=== PATIENT | male | born 1945 | race Caucasian/White ===

== ENCOUNTER 2020-01-16 11:06 | Outpatient (REF) | payer MEDICARE, SELFPAY ==
--- NOTE | 2020-01-16 | XR_ITS ---
EXAMINATION: XR ABDOMEN KUB CLINICAL INDICATION: Nephrolithiasis COMPARISON: Previous KUB June 2018 and renal ultrasound from the same day TECHNIQUE: AP view of the abdomen. FINDINGS: There are 2 left lower pole renal stones measuring 7 mm and 3 mm that appear unchanged. No right renal stone is seen. There are stable bilateral pelvic calcifications probably representing calcified phleboliths. Bowel gas pattern is normal. There are degenerative changes of the spine. XR/XR KUB IMPRESSION: Left renal stones.
--- NOTE | 2020-01-16 11:12 | US_ITS ---
EXAMINATION: US RETROPERITONEAL LIMITED (RENAL ONLY) CLINICAL INFORMATION: Nephrolithiasis. COMPARISON: Abdominal ultrasound dated 07/06/2019 TECHNIQUE: Real-time imaging of the kidneys. FINDINGS: RIGHT KIDNEY: 9.8 x 5.8 x 5.3 cm (SAG x AP x TRV). The kidney is normal in size, contour, and echogenicity. Renal cortical thickness is normal. No calculi or focal parenchymal lesions. No hydronephrosis. LEFT KIDNEY: 11.0 x 5.2 x 4.3 cm (SAG x AP x TRV). The kidney is normal in size, contour, and echogenicity. Renal cortical thickness is normal. No focal parenchymal lesions or hydronephrosis. There are 2 echogenic stones in the midpole. They measure 0.5 x 0.42 x 0.53 cm and 0.64 x 0.43 x 0.73 cm US/US renal BI IMPRESSION: Nonobstructive 2 echogenic stones in the midpole left kidney.
[2020-01-16 14:58] LABS: Alanine Aminotransferase 32 U/L (0-40); Aspartate Amino Transferase 31 U/L (5-37); Cholesterol 135 mg/dL; HDL Cholesterol 46 mg/dL; LDL Cholesterol Calculated 60 mg/dl; Triglycerides 145 mg/dL
== END 2020-01-16 11:07 | disposition home or self-care (01) ==
LOC: HO.HMGCX 11:06
PROVIDERS: PCP Internal Medicine; Referring Provider Internal Medicine Cardiovascular Disease; Visit Provider Urology
DX: E78.5 Hyperlipidemia, unspecified (principal); N20.0 Calculus of kidney
CPT/HCPCS: 74018; 76775; 80061; 84450; 84460

== ENCOUNTER 2020-02-02 11:00 | Outpatient (RCR) | payer MEDICARE, SELFPAY ==
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
--- NOTE | 2020-02-20 11:44 | MHC.PT.DC ---
[facility] [place] Office [place] Office [place] Office [address] Marcelo Adair [address] [phone] F: [phone] F: [phone] F: [phone] F: [phone] Physical Therapy Discharge Report Diagnosis: Back pain. Pt has no back pain, right ischial tuberosity tenderness and posterior upper leg pain. ? HS tear. Date of Surgery: n/a Date of Evaluation: 12/27/19 Date of Discharge: 02/20/20 Treatments to Date: 6 Cancellations to Date: 0 No Shows to Date: 0 Discharge Status: Achieved Goals Improved Function Independent with HEP Discharge Summary: BP 132/63 HR 68 SA02 97% (vitals from last treatment session) Pt attended 6 PT visits to address posterior leg pain w/ questionable HS tear. With his 's assistance, Pt is I w/ HEP. He is going back to [facility] per MD and therefore will be discharged from PT. Electronically signed by: Pam Justice PT, DPT Please sign and return to therapist. Thank you for your referral.
== END 2020-02-20 11:45 | disposition other institution (70) ==
LOC: HO.PT 11:00
PROVIDERS: PCP Internal Medicine; Visit Provider Internal Medicine
DX: M54.9 Dorsalgia, unspecified (principal)
CPT/HCPCS: 97110; 97112; 97140; 97162

== ENCOUNTER → 2020-02-24 15:11 | Outpatient (BNVA) | payer MEDICARE, SELFPAY | PROVIDERS: PCP Internal Medicine; Referring Provider Internal Medicine; Visit Provider Urology | DX: Z76.89 Persons encountering health services in other specified circumstances (principal) | CPT/HCPCS: Q3014 ==

== ENCOUNTER 2020-05-25 16:12 | Outpatient (REF) | payer MEDICARE, SELFPAY ==
[2020-05-25 17:57] LABS: Glucose Urine UA NEG (NEG); Leukocyte Esterase Urine NEG (NEG); Nitrite Urine NEG (NEG); PH 5.5 (5.0-8.0); Specific Gravity - Urine 1.025 (1.005-1.025); Urine Blood NEG (NEG); Urine Ketones NEG (NEG); Urine Protein 1+ MG/DL (NEG-TRACE)
[2020-05-25 17:58] LABS: Appearance Urine CLEAR; Color Urine YELLOW
[2020-05-25 18:06] LABS: RBC Urine 0 /HPF (0); WBC Urine 0 /HPF (0-4)
[2020-05-25 18:07] LABS: Squamous Epithelial Cell Urine TRACE /LPF
== END 2020-05-25 16:13 | disposition home or self-care (01) ==
LOC: HO.LAB 16:12
PROVIDERS: PCP Internal Medicine; Visit Provider Internal Medicine
DX: N39.0 Urinary tract infection, site not specified (principal)
CPT/HCPCS: 81001

== ENCOUNTER 2020-05-29 10:40 | Outpatient (REF) | payer MEDICARE, SELFPAY ==
--- NOTE | ~2020-05-29 | XR_ITS ---
EXAMINATION: XR ABDOMEN KUB CLINICAL INDICATION: Renal calculus. COMPARISON: 01/16/2020 KUB. TECHNIQUE: AP view of the abdomen. FINDINGS: 2 radiopaque calculi are seen overlying the left kidney measuring 0.7 cm and 0.5 cm without significant change. Phleboliths in the deep pelvis have not significantly changed. No radiopaque densities are seen overlying the right kidney. There is a nonobstructive bowel gas pattern. Gas and stool are seen distally to the rectum. Mild to moderate multilevel degenerative changes are again seen in the thoracolumbar spine. XR/XR KUB IMPRESSION: Left intrarenal calculi without significant change.
[2020-05-29 11:42] LABS: MANUAL DIFF FLAG NO
[2020-05-29 11:54] LABS: Basophils Percent Auto 0.6 % (0-2); Eosinophils Absolute Auto 0.2 X10*3/uL (0.0-0.4); Eosinophils Percent Auto 3.6 % (0-4); Hematocrit 39.6 % (42-52); Hemoglobin 13.2 g/dl (14.0-18.0); Imm Gran Abs Auto 0.02 X10*3/uL (0.00-0.03); Imm Gran Pct Auto 0.3 % (0.0-0.4); Lymphocytes Absolute Auto 1.8 X10*3/uL (1.2-4.9); Lymphocytes Percent Auto 29.7 % (20-40); Mean Corpuscular HGB Conc 33.3 g/dl (31.0-36.0); Mean Corpuscular Hemoglobin 34.4 pg (27.0-33.0); Mean Corpuscular Volume 103.1 fL (80-98); Mean Platelet Volume 10.9 fL (9.4-12.4); Monocytes Absolute Auto 0.7 X10*3/uL (0.1-1.2); Monocytes Percent Auto 11.2 % (2-11); Neutrophils Absolute Auto 3.4 X10*3/uL (2.0-8.3); Neutrophils Percent Auto 54.6 % (45-73); Platelet Count 246 X10*3/uL (160-400); Red Blood Count 3.84 X10*6/uL (4.60-5.80); Red Cell Distribution Width 13.2 % (11.0-16.0); White Blood Count 6.2 X10*3/uL (4.8-10.8)
[2020-05-29 12:04] LABS: Glucose Urine UA NEG (NEG); Leukocyte Esterase Urine NEG (NEG); Nitrite Urine NEG (NEG); Specific Gravity - Urine 1.025 (1.005-1.025); Urine Blood NEG (NEG); Urine Ketones NEG (NEG); Urine Protein 1+ MG/DL (NEG-TRACE)
[2020-05-29 12:08] LABS: Appearance Urine CLEAR; Color Urine YELLOW
[2020-05-29 12:37] LABS: Alanine Aminotransferase 22 U/L (0-40); Albumin Level 4.5 g/dL (3.5-5.0); Alkaline Phosphatase 80 U/L (39-117); Aspartate Amino Transferase 23 U/L (5-37); Blood Urea Nitrogen 19 mg/dL (9-16); Calcium 9.4 mg/dL (8.4-10.2); Cholesterol 156 mg/dL; Estimated Glomerular Filt Rate > 60; Glucose Fasting 106 mg/dL (60-99); HDL Cholesterol 50 mg/dL; LDL Cholesterol Calculated 79 mg/dl; Triglycerides 138 mg/dL
[2020-05-29 12:41] LABS: Thyroid Stimulating Hormone 0.87 uIU/mL (0.32-4.0)
[2020-05-29 12:49] LABS: RBC Urine 0 /HPF (0); WBC Urine 0 /HPF (0-4)
[2020-05-29 13:19] LABS: Anion Gap 14 (12-20); Carbon Dioxide 25 mmol/L (22-29); Chloride 108 mmol/L (96-108); Potassium 4.7 mmol/L (3.3-5.1); Sodium 142 mmol/L (135-145)
== END 2020-05-29 10:41 | disposition home or self-care (01) ==
LOC: HO.LAB 10:40
PROVIDERS: Absent Provider Urology; PCP Internal Medicine; Visit Provider Internal Medicine
DX: Z00.00 Encounter for general adult medical examination without abnormal findings (principal); N20.0 Calculus of kidney; E11.9 Type 2 diabetes mellitus without complications; E03.9 Hypothyroidism, unspecified; N39.0 Urinary tract infection, site not specified
CPT/HCPCS: 36415; 74018; 80053; 80061; 81001; 81003; 84443; 85025

== ENCOUNTER → 2021-03-06 12:48 | Outpatient (BNVA) | payer MEDICARE, SELFPAY | PROVIDERS: PCP Internal Medicine; Visit Provider Urology | DX: Z13.89 Encounter for screening for other disorder (principal) | CPT/HCPCS: Q3014 ==

== ENCOUNTER → 2021-04-23 11:56 | Outpatient (BNVA) | payer MEDICARE, SELFPAY | PROVIDERS: PCP Internal Medicine; Visit Provider Urology | DX: Z13.89 Encounter for screening for other disorder (principal) | CPT/HCPCS: Q3014 ==

== ENCOUNTER → 2021-06-21 11:11 | Outpatient (BNVA) | payer MEDICARE, SELFPAY | PROVIDERS: PCP Internal Medicine; Visit Provider Urology | DX: N20.0 Calculus of kidney (principal); R39.12 Poor urinary stream | CPT/HCPCS: Q3014 ==

== ENCOUNTER 2021-08-31 09:50 | Outpatient (REF) | payer MEDICARE, SELFPAY ==
[2021-08-31 10:06] LABS: MANUAL DIFF FLAG NO
[2021-08-31 11:05] LABS: Basophils Percent Auto 0.8 % (0-2); Eosinophils Absolute Auto 0.2 X10*3/uL (0.0-0.4); Hematocrit 37.1 % (42.0-52.0); Hemoglobin 12.3 g/dl (14.0-18.0); Imm Gran Abs Auto 0.01 X10*3/uL (0.00-0.03); Imm Gran Pct Auto 0.2 % (0.0-0.4); Lymphocytes Absolute Auto 1.4 X10*3/uL (1.2-4.9); Lymphocytes Percent Auto 25.7 % (20-40); Mean Corpuscular HGB Conc 33.2 g/dl (31.0-36.0); Mean Corpuscular Hemoglobin 33.8 pg (27.0-33.0); Mean Corpuscular Volume 101.9 fL (80.0-98.0); Mean Platelet Volume 11.3 fL (9.4-12.4); Monocytes Absolute Auto 0.6 X10*3/uL (0.1-1.2); Neutrophils Absolute Auto 3.1 x10*3/uL (2.0-8.3); Neutrophils Percent Auto 58.3 % (45-73); Platelet Count 195 X10*3/uL (160-400); Red Blood Count 3.64 X10*6/uL (4.60-5.80); Red Cell Distribution Width 13.8 % (11.0-16.0); White Blood Count 5.3 X10*3/uL (4.8-10.8)
[2021-08-31 11:32] LABS: Alanine Aminotransferase 25 U/L (0-40); Albumin Level 4.4 g/dL (3.5-5.0); Alkaline Phosphatase 88 U/L (39-117); Anion Gap 15 (12-20); Aspartate Amino Transferase 26 U/L (5-37); Bilirubin Total 1.1 mg/dL (0.0-1.0); Blood Urea Nitrogen 20 mg/dL (9-16); Calcium 9.2 mg/dL (8.4-10.2); Carbon Dioxide 23 mmol/L (22-29); Chloride 108 mmol/L (96-108); Cholesterol 141 mg/dL; Estimated Glomerular Filt Rate > 60; Glucose Fasting 111 mg/dL (60-99); HDL Cholesterol 47 mg/dL; LDL Cholesterol Calculated 76 mg/dl; Potassium 4.5 mmol/L (3.3-5.1); Sodium 141 mmol/L (135-145); Total Protein 6.9 g/dL (6.5-8.0); Triglycerides 91 mg/dL
[2021-08-31 11:48] LABS: Thyroid Stimulating Hormone 1.14 uIU/mL (0.32-4.0)
== END 2021-08-31 09:51 | disposition home or self-care (01) ==
LOC: HO.LAB 09:50
PROVIDERS: PCP Internal Medicine; Visit Provider Internal Medicine
DX: Z00.00 Encounter for general adult medical examination without abnormal findings (principal); Z13.0 Encounter for screening for diseases of the blood and blood-forming organs and certain disorders involving the immune mechanism; E78.5 Hyperlipidemia, unspecified
CPT/HCPCS: 36415; 80053; 80061; 84443; 85025

== ENCOUNTER 2021-09-03 09:35 | Outpatient (REF) | payer MEDICARE, SELFPAY ==
--- NOTE | ~2021-09-03 | US_ITS ---
EXAMINATION: US RETROPERITONEAL LIMITED (RENAL ONLY) CLINICAL INFORMATION: Calculus of kidney. COMPARISON: X-ray KUB 05/29/2020 and 01/16/2020. Renal ultrasound 01/16/2020. Ultrasound abdomen complete 07/06/2019. CT abdomen and pelvis 06/25/2018. TECHNIQUE: Real-time imaging of the kidneys. FINDINGS: RIGHT KIDNEY: 9.7 x 5.6 x 5.1 cm (SAG x AP x TRV). The kidney is normal in size, contour, and echogenicity. Renal cortical thickness is normal. No calculi or focal parenchymal lesions. No hydronephrosis. LEFT KIDNEY: 11.3 x 5.6 x 4.9 cm (SAG x AP x TRV). The kidney is normal in size, contour, and echogenicity. Renal cortical thickness is normal. There is a 6 3 x 7 mm stone in the midpole. The second previously identified left renal stone is not appreciated. No focal parenchymal lesions or hydronephrosis. US/US renal BI IMPRESSION: Left renal stone. Normal right kidney.
== END 2021-09-03 09:36 | disposition home or self-care (01) ==
LOC: HO.US 09:35
PROVIDERS: Visit Provider Urology
DX: N20.0 Calculus of kidney (principal)
CPT/HCPCS: 76775